=== PATIENT | male | born 1995 | race Caucasian/White ===

== ENCOUNTER → 2022-01-26 18:57 | Outpatient (CLI) | payer OTHER, SELFPAY ==
--- NOTE | 2022-01-26 19:05 | DI.MRI.S_ITS ---
PROCEDURE: MR HEAD/BRAIN WO CON INDICATIONS: OPHALMOPLEGIC MIGRAINE TECHNIQUE: Noncontrast axial T1 spin echo, axial T2 fast spin echo, sagittal and axial FLAIR, coronal T2 fast spin echo, axial gradient echo, axial diffusion and ADC through the brain. COMPARISON: None. FINDINGS: Image quality: Excellent. CSF Spaces: Basal cisterns are patent. No extra-axial fluid collections. Ventricles are normal in size and shape. Brain: No intracranial masses or hemorrhage. Newman/white matter interface is normal. Brainstem appears normal. Diffusion-weighted images demonstrate no acute ischemic insult. No chronic ischemic insults. Normal intravascular flow voids are present. Skull and face: Calvarium has normal marrow signal. Orbits appear normal. Sinuses: Sinuses demonstrate trace pansinus mucosal thickening. No fluid levels. IMPRESSION: 1. No acute intracranial process. 2. Trace pansinus mucosal thickening. Dictated by: Yvonne Haley M.D. on 01/27/2022 at 8:18 Approved by: Yvonne Haley M.D. on 01/27/2022 at 8:19
== END ==
PROVIDERS: Referring Provider Student in an Organized Health Care Education/Training Program; Visit Provider Student in an Organized Health Care Education/Training Program
DX: G43.B0 Ophthalmoplegic migraine, not intractable (principal)
CPT/HCPCS: 70551